=== PATIENT | female | born 1985 | race Caucasian/White ===

== ENCOUNTER 2018-07-14 14:53 | Inpatient (IN) | payer MEDICAID, OTHER ==
[2018-07-14] MEDS ORDERED: STADOL IV PRN (15:33)
[2018-07-14 15:52] LABS: Hematocrit 30.7 % (30.3-42.9); Hemoglobin 10.4 gm/dl (10.1-14.3); Mean Corpuscular HGB Conc 34 % (30-34); Mean Corpuscular Volume 90 fl (79-97); Platelet Count 249 K/mm3 (140-440); Red Blood Count 3.41 M/mm3 (3.65-5.03); Red Cell Distribution Width 13.3 % (13.2-15.2)
[2018-07-14] MEDS ORDERED: LACTATED RINGERS 1,000 ML ONE (16:19)
[2018-07-14] MEDS ORDERED: PITOCin/NS 20 UNIT/1000ML DRIP 20,000 MILLIUNITS/1,000 ML BAG IV ONE (16:27)
[2018-07-14] MEDS ORDERED: BRETHINE SUB-Q PRN (16:53)
[2018-07-14] MEDS ORDERED: MINERAL OIL PO PRN (16:53)
[2018-07-14] MEDS ORDERED: XYLOCAINE 2% INFILTRATI ONE (16:53)
[2018-07-14] MEDS ORDERED: BRETHINE IVP PRN (16:53)
[2018-07-14] MEDS ORDERED: MILK OF MAGNESIA PO PRN (16:56)
[2018-07-14] MEDS ORDERED: PHENERGAN PR PRN (16:56)
[2018-07-14] MEDS ORDERED: BENADRYL PO PRN (16:56)
[2018-07-14] MEDS ORDERED: DULCOLAX PR PRN (16:56)
[2018-07-14] MEDS ORDERED: SODIUM CHLORIDE FLUSH SYRINGE 10 ML IV NR (17:00)
[2018-07-14] MEDS ORDERED: LACTATED RINGERS 1,000 ML IV SCH (17:00)
[2018-07-14] MEDS ORDERED: PITOCin/NS 20 UNIT/1000ML DRIP 20 UNITS/1,000 ML BAG IV SCH (17:00)
--- NOTE | 2018-07-14 17:04 | History and Physical Report ---
History of Present Illness Date of examination: 07/14/18 Date of admission: 07/14/18 16:10 Chief complaint: Intense labor pains and my water broke today at 1:00 PM. History of present illness: Early entry to care at [facility], course complicated by a +Quad screen for Down's with a normal consult, and a abnormal 1hour GTT followed by a normal 3 hour GTT. Also has Anemia, taking FeSO4. Past History Past Medical History: no pertinent history Past Surgical History: cholecystectomy (2012) Family/Genetic History: none Social history: no significant social history - Obstetrical History Expected Date of Delivery: 07/29/18 Actual Gestation: 37 Week(s) 6 Day(s) : 6 Para: 4 Hx # Term Pregnancies: 4 Spontaneous Abortions: 1 Number of Living Children: 4 #2 Gender: Female year: 2,[birth year] Birthweight: 2.722 kg Method of Delivery: Vaginal Gestational age at delivery: 40 Complications: none #1 Gender: Male year: 2,[birth year] Birthweight: 3.175 kg Method of Delivery: Vaginal Gestational age at delivery: 40 Complications: none #3 Gender: Female year: 2,[birth year] Birthweight: 2.722 kg Method of Delivery: Vaginal Gestational age at delivery: 40 Complications: none #4 Infant Gender: Male year: 2,013 Birthweight: 3.629 kg Method of Delivery: Vaginal Gestational age at delivery: 38 Complications: none Medications and Allergies Allergies Allergy/AdvReac Type Severity Reaction Status Date / Time No Known Allergies Allergy Verified 06/16/18 14:27 Active Meds: Active Medications Acetaminophen/Hydrocodone Bitart ([place] 5/325) 2 each PO Q6H PRN PRN Reason: Pain, Moderate (4-6) Bisacodyl (Dulcolax) 10 mg SD BID PRN PRN Reason: Constipation Butorphanol Tartrate (Stadol) 2 mg IV Q2H PRN PRN Reason: Labor Pain Last Admin: 07/14/18 16:02 Dose: 2 mg Documented by: Diphenhydramine HCl (Benadryl) 25 mg PO Q6H PRN PRN Reason: Itching Ephedrine Sulfate (Ephedrine Sulfate) 10 mg IV Q2M PRN PRN Reason: Hypotension Lactated Ringer's (Lactated Ringers) 1,000 mls @ 125 mls/hr IV DIRECT MARK Oxytocin/Sodium Chloride (Pitocin/Ns 20 Unit/1000ml Drip) 20 units in 1,000 mls @ 125 mls/hr IV DIRECT MARK Ibuprofen (Motrin) 600 mg PO Q6H MARK Lidocaine (Xylocaine 2%) 20 ml INFILTRATI ONCE ONE Stop: 07/14/18 16:54 Magnesium Hydroxide (Milk Of Magnesia) 30 ml PO HS PRN PRN Reason: Constipation Mineral Oil (Mineral Oil) 30 ml PO QHS PRN PRN Reason: Constipation Promethazine HCl (Phenergan) 25 mg SD Q6H PRN PRN Reason: Nausea And Vomiting Sodium Chloride (Sodium Chloride Flush Syringe 10 Ml) 10 ml IV PRN NR Terbutaline Sulfate (Brethine) 0.25 mg SUB-Q ONCE PRN PRN Reason: Hyperstimulation/Hypertonicity Terbutaline Sulfate (Brethine) 0.25 mg IVP ONCE PRN PRN Reason: Hyperstimulation/Hypertonicity Review of Systems All systems: negative - Vital Signs Vital signs: Vital Signs Pulse BP 98 H 110/58 07/14/18 15:47 07/14/18 15:47 Temp Pulse Resp BP Pulse Ox 86 125/66 07/14/18 16:51 07/14/18 16:51 - Physical Exam Breasts: Positive: normal Cardiovascular: Regular rate Lungs: Positive: Clear to auscultation, Normal air movement Abdomen: Positive: normal appearance, soft Genitourinary (Female): Positive: normal external genitalia, normal perenium Vagina: Positive: normal moisture Uterus: Positive: enlarged - Obstetrical FHR: category 1 Uterine Contraction Monitor Mode: External Cervical Dilatation: 10 (leaking a small amount of clear fluid) Cervical Effacement Percentage: 100 station: +3 Uterine Contraction Pattern: Regular Uterine Tone Measurement Phase: Resting Uterine Contraction Intensity: Strong/Firm Results Result Diagrams: 07/14/18 15:06 Abnormal lab results 07/14/18 Range/Units 15:06 RBC 3.41 L (3.65-5.03) M/mm3 All other labs normal. Assessment and Plan A: IUP@ 37 6/7 Weeks Active Labor SROM GBS Negative P: Admit to L&D per Routine Orders
--- NOTE | 2018-07-14 17:13 | Procedure Note ---
OB Delivery Note - Delivery Date of Delivery: 07/14/18 (1622) Surgeon: DYLON BERRY Estimated blood loss: 200cc - Vaginal Delivery presentation: vertex Delivery position: OA Intrapartum events: precipitous labor- <3hr Delivery induction: none Delivery monitor: external FHT, external uterine Route of delivery: Delivery placenta: spontaneous Delivery cord: 3 umbilical vessels Episiotomy: none Delivery laceration: none Anesthesia: none Delivery comments: of a live 7'13 male over a intact perineum under IV pain control with Apgars of 9 and 9 at 1622 on 07/14/2018. directly to maternal abd/chest, skin to skin contact. Spontaneous delivery of placenta complete and intact with Garsia side presenting at 1628. Fundus is firm and midline located 4 below the U. Lochia is scant. Delayed cord clamping and cutting; Cord cut by Father of the baby. Cord blood collected; Placenta discarded. - A at 1 minute: 9 at 5 minutes: 9 Gender: Male (7'13)
[2018-07-14] MEDS: IBUPROFEN PO SCH ×2 (18:38→22:09)
[2018-07-14] MEDS: NORCO 5/325 PO PRN (20:04)
[2018-07-15 04:52] LABS: Hematocrit 22.8 % (30.3-42.9); Hemoglobin 7.6 gm/dl (10.1-14.3)
[2018-07-15] MEDS: IBUPROFEN PO SCH ×4 (05:08→22:19)
[2018-07-15] MEDS: NORCO 5/325 PO PRN (05:10)
--- NOTE | 2018-07-15 13:04 | Progress Note ---
Assessment and Plan A: PP Day #1 Asymptomatic Anemia P: Follow Routine Orders Ferrous Sulfate PO TID Has FeSO4 at home and will continue TID D/C home in the AM RTO in 6 weeks Subjective - Subjective Date of service: 07/15/18 Interval history: Early entry to care at [facility], course complicated by a +Quad screen for Down's with a normal consult, and a abnormal 1hour GTT followed by a normal 3 hour GTT. Also has Anemia, taking FeSO4. Patient reports: appetite normal, voiding normally, pain well controlled, flatus, ambulating normally : doing well, bottle feeding (and ) Objective - Vital Signs Latest vital signs: Vital Signs Temp Pulse Resp BP BP Pulse Ox 07/15/18 07:38 98.3 F 67 16 104/56 98 07/15/18 00:00 98.6 F 74 18 118/71 07/14/18 20:04 18 07/14/18 20:00 98.6 F 18 L 18 102/76 07/14/18 18:30 98.1 F 78 18 120/63 99 07/14/18 18:06 80 124/60 07/14/18 17:52 75 117/66 07/14/18 17:36 100 H 115/74 07/14/18 17:21 88 113/58 07/14/18 17:06 93 H 118/60 07/14/18 16:51 86 125/66 07/14/18 16:27 103 H 128/90 07/14/18 15:47 98 H 110/58 Intake and Output 07/14/18 07/15/18 07/15/18 22:59 06:59 14:59 Intake Total 300 360 Output Total 500 Balance -500 300 360 Intake: Oral 360 Intake, Free Water 300 Output: Urine 500 Void 500 Other: Total, Intake Amount 360 Total, Output Amount 500 # Voids Void 1 1 Weight 77.111 kg Estimated Blood Loss 200 - Exam Breasts: Present: normal Cardiovascular: Present: Regular rate Lungs: Present: Clear to auscultation, Normal air movement Abdomen: Present: normal appearance, soft, normal bowel sounds Uterus: Present: normal, firm, fundal height below umbilicus Extremities: Present: normal - Labs Labs: Abnormal lab results 07/14/18 07/15/18 Range/Units 15:06 04:20 RBC 3.41 L (3.65-5.03) M/mm3 Hgb 7.6 L (10.1-14.3) gm/dl Hct 22.8 L D (30.3-42.9) %
--- NOTE | 2018-07-15 13:06 | Discharge Summary ---
Providers - Providers Date of Admission: 07/14/18 16:10 Date of discharge: 07/16/18 Attending physician: MONY TODD MD Primary care physician: MONY TODD MD Hospitalization Reason for admission: active labor Delivery: Episiotomy: none Laceration: none Other procedures: none complications: none Discharge diagnosis: IUP at term delivered [place] baby: male Condition at discharge: Good Disposition: DC-01 TO HOME OR SELFCARE Plan - Provider Discharge Summary Activity: routine, no sex for 6 weeks, no heavy lifting 4 weeks, no strenuous exercise Diet: routine Instructions: routine Additional instructions: [] Smoking cessation referral if applicable(refer to patient education folder for contact #) [] Refer to [facility]'s [place] [facility] Booklet Call your doctor immediately for: * Fever > 100.5 * Heavy vaginal bleeding ( >1 pad per hour) * Severe persistent headache * Shortness of breath * Reddened, hot, painful area to leg or breast * Drainage or odor from incision. * Keep incision clean and dry at all times and follow doctor's instructions regarding bathing/showering - Follow up plan Follow up: MONY TODD MD [Primary Care Provider] - 6 Weeks
[2018-07-15] MEDS: FEOSOL PO SCH ×2 (14:53→22:18)
[2018-07-16] MEDS: IBUPROFEN PO SCH ×2 (06:06→10:31)
[2018-07-16] MEDS: FEOSOL PO SCH (08:30)
[2018-07-16 13:14] VITALS: BP 101/58
== END 2018-07-16 13:15 | disposition home or self-care (01) | DRG 775 ==
LOC: TRG 14:53 → LD 16:10 → OB 18:24
PROVIDERS: ADMIT Obstetrics & Gynecology; ATTEND Obstetrics & Gynecology
PROC: 10E0XZZ Delivery of Products of Conception, External Approach (ICD-10-PCS; principal; 2018-07-14)
DX: O62.3 Precipitate labor (principal); Z37.0 Single live birth; Z3A.37 37 weeks gestation of pregnancy; Z90.49 Acquired absence of other specified parts of digestive tract; O90.81 Anemia of the puerperium; D64.9 Anemia, unspecified
CPT/HCPCS: 36415; 85014; 85018; 85027; 86850; 86900; 86901; G0378; J0595; J2590; J7120